=== PATIENT | female | born 1990 | race Two or more races ===

== ENCOUNTER 2020-03-05 14:55 | Emergency (ER) | payer BC ==
[~2020-03-05] VITALS: Ht 152.4 cm; Wt 61.2 kg
[2020-03-05 15:03] VITALS: BP 116/67
--- NOTE | 2020-03-05 15:05 | NUR ---
PT BIB SELF C/O POSSIBLE FOREIGN BODY (GLASS), STEPPED ON BROKEN GLASS 2 MONTHS AGO. VS CHECKED. STABLE.
[2020-03-05] MEDS ORDERED: LIDOCAINE 1%-EPI 1:100,000 20 ML VIAL ONE (16:13)
[2020-03-05] MEDS ORDERED: LIDOCAINE 1% INJ 50 ML MDV IJ ONE (16:30)
--- NOTE | 2020-03-05 17:16 | NUR ---
DR. VILLALOBOS BY BEDSIDE. PERFORMING SUTURES ON L FOOT
[2020-03-05] MEDS ORDERED: IBUPROFEN 600 MG TABLET ONE (17:27)
[2020-03-05] MEDS ORDERED: IBUPROFEN 600 MG TABLET PO ONE (17:30)
--- NOTE | 2020-03-05 18:14 | NUR ---
Patient discharged to home in stable condition. Written and verbal after care instructions given. Patient verbalizes understanding of instruction.
== END 2020-03-05 18:15 | disposition home or self-care (01) ==
LOC: ER 14:58
DX: S90.852A Superficial foreign body, left foot, initial encounter (principal); W45.8XXA Other foreign body or object entering through skin, initial encounter; Y93.89 Activity, other specified; Y92.89 Other specified places as the place of occurrence of the external cause; Y99.8 Other external cause status
CPT/HCPCS: 10120; 73620; 73630; 99285; J3490

== ENCOUNTER 2020-03-08 10:36 | Emergency (ER) | payer BC ==
[~2020-03-08] VITALS: Ht 167.6 cm; Wt 61.2 kg
[2020-03-08 10:52] VITALS: BP 141/72
== END 2020-03-08 11:28 | disposition home or self-care (01) ==
LOC: ER 10:37
DX: S91.311D Laceration without foreign body, right foot, subsequent encounter (principal); W25.XXXD Contact with sharp glass, subsequent encounter
CPT/HCPCS: 99281; A6403

== ENCOUNTER 2020-03-17 09:04 | Emergency (ER) | payer BC ==
[~2020-03-17] VITALS: Ht 165.1 cm; Wt 65.8 kg
[2020-03-17 09:24] VITALS: BP 134/77
--- NOTE | 2020-03-17 09:42 | NUR ---
Patient discharged to home in stable condition. Written and verbal after care instructions given. Patient verbalizes understanding of instruction.
== END 2020-03-17 09:45 | disposition home or self-care (01) ==
LOC: ER 09:06
DX: S91.312D Laceration without foreign body, left foot, subsequent encounter (principal); X58.XXXD Exposure to other specified factors, subsequent encounter